=== PATIENT | female | born 1995 | race Caucasian/White ===

== ENCOUNTER 2023-04-11 11:58 | Emergency (ER) | payer SELFPAY ==
[~2023-04-11] VITALS: Ht 172.7 cm; Wt 68.5 kg
[2023-04-11 12:01] VITALS: TEMP 98.5; O2SAT 99
[2023-04-11 12:52] LABS: BASOPHILS % 0.6 % (0.0-2.0); EOSINOPHILS % 1.4 % (0.0-5.0); HEMATOCRIT. 34.8 % (36.0-48.0); HEMOGLOBIN. 11.7 g/dL (12.0-16.0); LYMPHOCYTES % 21.9 % (20.0-50.0); MEAN CORPUSCULAR HEMOGLOBIN 32.3 pg (28.0-32.0); MEAN CORPUSCULAR HGB CONC 33.6 g/dL (31.0-37.0); MEAN CORPUSCULAR VOLUME 96.2 fL (81.0-99.0); MEAN PLATELET VOLUME 8.9 fl (7.4-10.4); MONOCYTES % 7.6 % (2.0-8.0); NEUTROPHILS % 68.5 % (40.0-76.0); PLATELET 222 x1000/uL (130-400); RED BLOOD CELL COUNT 3.61 mill/uL (4.2-5.4); RED CELL DISTRIBUTION WIDTH 13.7 % (11.6-14.6); WHITE BLOOD COUNT 4.7 x1000/uL (4.5-11.0)
[2023-04-11 13:05] LABS: AMMONIA 64 uMol/L (<32)
[2023-04-11 13:07] LABS: HCG SCREEN NEGATIVE
[2023-04-11 13:42] LABS: ACETAMINOPHEN < 2 ug/mL (10-30); ALANINE AMINOTRANSFERASE 28 IU/L (10-49); ALBUMIN 3.5 g/dL (3.2-4.8); ASPARTATE AMINOTRANSFERASE 31 IU/L (<34); BILIRUBIN TOTAL 0.4 mg/dL (0.1-1.0); CALCIUM 8.3 mg/dL (8.7-10.4); CARBON DIOXIDE 24 mEq/L (21-32); CHLORIDE 109 mEq/L (98-107); CREATININE 0.7 mg/dL (0.6-1.0); GLUCOSE 119 mg/dL (70-105); POTASSIUM 3.7 mEq/L (3.5-5.1); PROTEIN TOTAL 5.1 g/dL (6.0-8.3); SODIUM 142 mEq/L (136-145); THYROID STIMULATING HORMONE 1.29 uIU/mL (0.55-4.78); UREA NITROGEN BLOOD 12 mg/dL (9-23)
[2023-04-11 13:43] LABS: ETHANOL BLOOD < 10 mg/dL (<10)
[2023-04-12 10:02] VITALS: BP 127/65; PULSE 78; RESP 13
== END 2023-04-12 10:12 | disposition home or self-care (01) ==
LOC: ER 12:14 → EDBD 12:14 → ER 04-12 10:12
DX: Z09 Encounter for follow-up examination after completed treatment for conditions other than malignant neoplasm (principal)
CPT/HCPCS: 36415; 71045; 80053; 80307; 80320; 80329; 82140; 84443; 84703; 85025; 99284; G0480